=== PATIENT | female | born 1980 | race Caucasian/White ===

== ENCOUNTER 2024-01-28 11:39 | Emergency (ER) | payer BC, SELFPAY ==
[2024-01-28 11:51] VITALS: BP 121/90; PULSE 84; RESP 18; TEMP 36.8; O2SAT 100
--- NOTE | 2024-01-28 12:39 | ED.URI ---
HPI - URI/Sore Throat General Chief Complaint: Upper Respiratory Infection Stated Complaint: Cough/Sore Throat Time Seen by Provider: 01/28/24 12:35 Source: patient, RN notes reviewed and old records reviewed Mode of arrival: ambulatory Limitations: no limitations History of Present Illness HPI Narrative: 43 year old female who presents to [facility] care with complaints of sore throat since yesterday with fever up to 100F noted last night. Patient reports that she has had dry cough for about a month without resolution.Patient reports that she has taken some Tylenol for her symptoms. Patient reports no dyspnea with respirations nonlabored and SAO2 100% on room air, no tachypnea noted. MD elicited complaint: cough and sore throat Onset (ago): day(s) (sore throat since yesterday and cough for one month) Severity: mild Able to tolerate fluids by mouth: Yes Treatments prior to arrival: acetaminophen Related Data Home Medications Medication Instructions Recorded Confirmed escitalopram oxalate 20 mg tablet 20 mg PO DAILY 01/28/24 01/28/24 Allergies Allergy/AdvReac Type Severity Reaction Status Date / Time No Known Allergies Allergy Unknown Unverified 09/20/14 13:27 Review of Systems Review of Systems: CONSTITUTIONAL:Reports malaise, chills, sweats, or fever. EYES: Denies visual changes, redness, or discharge. ENT: Reports rhinorrhea, congestion,no sinus pain, no otalgia and positive for sore throat. CARDIOVASCULAR: Denies chest pain, palpitations, or edema. RESPIRATORY: Reports cough.? Denies dyspnea. GASTROINTESTINAL: Denies abdominal pain, nausea, vomiting, diarrhea SKIN: Denies rash or itching. MUSCULOSKELETAL: Denies myalgia. NEUROLOGIC: Denies headache. All systems reviewed & are unremarkable except as noted in HPI and below PMFSH Past Medical History Medical History Miscarriage Surgical History Surgical History History of dilatation and curettage Family History Family History Father Family history of arthritis Family history of lymphoma Social History Social History Smoking status: Never smoker Second hand tobacco smoke exposure: No Alcohol intake: never Comments At time of signature, agree with nursing past medical, surgical, social and family history. There is no relevant family history pertinent to the presenting complaint Exam Narrative: GENERAL: Well-appearing, well-nourished, and in no acute distress. HEAD: Normocephalic EYES: PERRLA, conjunctivae clear ENT: Nares clear, turbinates edematous and erythematous, clear discharge. Mucous membranes moist. TM pearly vaughan with dull light reflex bilaterally; no tragal tenderness. Oropharynx erythematous without lesions. Tonsils not enlarged and without exudate, no drooling, no hoarseness, no trismus, uvula midline.post nasal drainage NECK: Supple. No lymphadenopathy CHEST: Clear to auscultation, breath sounds equal. No wheezing, rhonchi, rales, or stridor. No respiratory distress, speaks in full sentences. dry cough,SAO2 100% on room air HEART: Regular rate and rhythm. No murmur heard. SKIN: Warm, dry, no rash. NEURO: Alert and oriented x3. PSYCH: Normal mood and affect Course Course Emergency Course: Patient is aware of diagnosis, understands and agrees to treatment plan.? Anticipatory guidance given.? Patient agrees to follow-up as directed and is aware of reasons to seek care at the emergency department. Portions of this record may have been created with voice recognition software Level of Care: Express Care Visit Vital Signs Vital signs: Vital Signs Temperature 36.8 C 01/28/24 11:51 Pulse Rate 84 01/28/24 11:51 Respiratory Rate 18 01/28/24 11:51 Blood Pressure 121/90 01/28/24 11:51 Pulse Oximetry 100 01/28/24 11:51 Oxygen Delivery Room Air 01/28/24 11:51 Temperature 36.8 C 01/28/24 11:51 Pulse Rate 84 01/28/24 11:51 Respiratory Rate 18 01/28/24 11:51 Blood Pressure 121/90 01/28/24 11:51 Pulse Oximetry 100 01/28/24 11:51 Oxygen Delivery Room Air 01/28/24 11:51 Reviewed MDM - URI/Sore Throat MDM Narrative Medical decision making narrative: Differential diagnosis considered: Ferrer virus, strep pharyngitis, allergic rhinitis, upper respiratory tract infection, sinusitis, rhinosinusitis, nasopharyngitis. viral pharyngitis, otitis media, otitis externa, pneumonia, bronchitis, viral cough syndrome, viral syndrome, and influenza.? Exam findings show no acute concerns or changes; patient is non-toxic appearing and is in no distress.? Patient is appropriate for outpatient treatment and follow-up. Differential Diagnosis Differential diagnosis: Likely upper respiratory infection, viral infection, pharyngitis and other (STREP THROAT, AND ACUTE COUGH) Medical Records Attestation: I reviewed the patient's medical records. Lab Data Attestation: I reviewed the patient's lab results. Lab results narrative: STREP SCREEN NEGATIVE,CULTURE SENT Labs: Lab Results 01/28/24 Range/Units 14:08 POC Grp A Strep Screen Negative (Negative) Critical Care Time Critical Care Time Critical Care Time: No Discharge Plan Discharge Clinical Impression: Upper respiratory infection, Cough Patient Disposition: Home, Self-Care Condition: Stable Instructions: Antibiotic Form, Upper Respiratory Infection (ED), Acute Cough (ED) Additional Instructions: Increase fluids especially juices and water [id number] cough and cold medicine of your choice for your symptoms Zyrtec Claritin or Melissa daily include Coricidin brand decongestant Steroids as directed--take with food heat to the face 20-30 minutes 4-6 times a day for pain Salt water gargles, throat lozenges or throat sprays as desired Your strep test today was negative. A throat culture will be sent to the laboratory for further testing. IF the test is positive, you will receive a phone call within 48 hours and an appropriate antibiotic will be initiated at that time. If your symptoms persist, change or worsen significantly before you can contact your personal physician then please, without delay, go to the emergency department for further evaluation. Follow-up with PCP in 7-10 days or sooner if needed Follow up with PCP soon in regards to your blood pressure which is elevated above threshold for referral. Blood pressure above 120/80 may indicate pre-hypertension. 121/90 Prescriptions: New prednisone 20 mg tablet 20 mg PO BID Qty: 10 0RF No Action escitalopram oxalate 20 mg tablet 20 mg PO DAILY Follow-up/Referrals: UNKNOWN,DOCTOR [Primary Care Provider] - Stand Alone Forms: Work/School Release IP Time of Disposition: 12:43 Quality [place] Coma Scale Eyes: Open Verbal: Oriented and Alert Motor: Follows Commands [place] Coma Total Score: 15
[2024-01-28 14:10] LABS: EDSTREPNEGPOS1 Negative (Negative)
== END 2024-01-28 12:47 | disposition home or self-care (01) ==
PROVIDERS: Emergency Provider Registered Nurse
DX: J06.9 Acute upper respiratory infection, unspecified (principal); R05.1 Acute cough
CPT/HCPCS: 87081; 87880; 99213; G0463

== ENCOUNTER 2024-11-25 08:03 | Emergency (ER) | payer BC, SELFPAY ==
[2024-11-25 08:09] VITALS: BP 149/70; PULSE 109; RESP 16; TEMP 36.6; O2SAT 100
--- NOTE | 2024-11-25 08:09 | ED.URI ---
HPI - URI/Sore Throat General Chief Complaint: Upper Respiratory Infection Stated Complaint: cough Time Seen by Provider: 11/25/24 08:10 Source: patient, RN notes reviewed and old records reviewed Mode of arrival: ambulatory Limitations: no limitations History of Present Illness HPI Narrative: 44-year-old female presents to the [facility] with complaints of cough, sore throat, body aches, fatigue. Unknown fever. No measurements. States that started Thursday day. Has taken DayQuil and NyQuil with minimal relief. Denies chest pain, shortness of breath. Onset (ago): day(s) (2) Consistency: constant Treatments prior to arrival: cold medicine Related Data Home Medications ?Medication ?Instructions ?Recorded ?Confirmed ?Last Taken ?Type No Home Medications 11/25/24 Unknown History Allergies Allergy/AdvReac Type Severity Reaction Status Date / Time No Known Allergies Allergy Unknown Unverified 11/25/24 08:15 Review of Systems Review of Systems: All systems reviewed & are unremarkable except as noted in HPI and below Constitutional: Constitutional: Reports as per HPI and Reports body ache(s) ENT: Reports as per HPI and Reports sore throat Cardiovascular: Cardiovascular: Reports no additional cardiovascular complaints, Denies chest pain and Denies dyspnea Respiratory: Respiratory: Reports as per HPI, Denies chest congestion, Reports cough and Denies dyspnea Musculoskeletal: Musculoskeletal: Reports no additional musculoskeletal complaints Integumentary/Breasts: Skin/Breast: Reports system reviewed and no additional complaints, except as docu PMFSH Past Medical History Medical History Miscarriage Surgical History Surgical History History of dilatation and curettage Family History Family History Father Family history of arthritis Family history of lymphoma Social History Social History Smoking status: Never smoker Second hand tobacco smoke exposure: No Alcohol intake: never Comments At the time of my signature, I reviewed and agree with the nursing past medical, surgical, social, and family history. There is no relevant family history pertinent to the patient complaint. Exam Const: General: cooperative, healthy appearing, comfortable, no acute distress, well developed, alert and well nourished Nutritional Appearance: well nourished and obese Orientation/consciousness: patient oriented x3 Limitations: no limitations HENMT: Head: normal to inspection Ears: hearing grossly normal bilaterally, external ears normal, TM's normal bilaterally, EAC's normal, mastoids normal and no periauricular adenopathy Mouth: Yes Normal oral and palatal mucosa present, Yes lip normal, Yes tongue normal and Yes moist mucous membranes Throat: posterior oropharynx normal, uvula midline, postnasal drainage and no uvular edema Eyes: General: appearance normal, both eyes and all related structures Alignment and Position: alignment normal Neck: Neck: normal visual inspection, full ROM, no lymphadenopathy and no meningeal signs Chest: Chest palpation & inspection: normal inspection of the chest Resp: Effort & Inspection: normal respiratory effort and able to speak in complete sentences Auscultation: clear to auscultation bilaterally, no crackles, no rales, no rhonchi and no wheezes Cardio: Rate: regular rate Skin: General skin exam: normal color and no rashes or lesions noted Neuro: General: patient oriented x3, gait normal, moves all extremities and no meningeal signs Cognition (Neuro): normal cognition Speech: normal speech Gait exam (Neuro): Normal gait present Extrem: General: normal to inspection, full ROM, capillary refill normal and normal gait Psych: Appearance: grossly normal and well kempt Mental Status: mental status grossly normal Speech and movement: Normal speech and movement present and Clear speech present Affect: normal affect Attitude: cooperative Course Course Level of Care: Express Care Visit Vital Signs Vital signs: Vital Signs Temperature 98 F 11/25/24 08:09 Pulse Rate 109 H 11/25/24 08:09 Respiratory Rate 16 11/25/24 08:09 Blood Pressure 149/70 H 11/25/24 08:09 Pulse Oximetry 100 11/25/24 08:09 Oxygen Delivery Room Air 11/25/24 08:09 Temperature 98 F 11/25/24 08:09 Pulse Rate 109 H 11/25/24 08:09 Respiratory Rate 16 11/25/24 08:09 Blood Pressure 149/70 H 11/25/24 08:09 Pulse Oximetry 100 11/25/24 08:09 Oxygen Delivery Room Air 11/25/24 08:09 Reviewed MDM - URI/Sore Throat MDM Narrative Medical decision making narrative: Patient sitting in exam room. Patient is nontoxic, vitals are stable except blood pressure mildly elevated, recommended following up with primary care provider. Patient 2 day history of URI symptoms, body aches, sore throat, congestion. Patient is COVID positive. Flu and strep negative. Due to positive COVID and exam with no acute findings, not sending for strep. Patient appropriate for outpatient treatment with close follow-up of COVID-19 Discharge instructions reviewed with patient, as well as provided in writing per nursing staff. The instructions also include specific and strict return/GO TO THE ER as well as f/u information. All questions have been answered, and the patient deny any further questions with discharge and discharge plan. Some parts of this dictation were generated by voice recognition software and may contain typographical and/or grammatical inaccuracies. Differential Diagnosis Differential diagnosis: Likely upper respiratory infection, otitis media, sinusitis, viral infection, bronchitis, influenza and pharyngitis Lab Data Labs: Lab Results 11/25/24 Range/Units 08:24 POC Influenza A Ag Negative (Negative) POC Influenza B Ag Negative (Negative) POC SARS CoV-2 Ag Positive (Negative) POC Grp A Strep Screen Negative (Negative) Reviewed Critical Care Time Critical Care Time Critical Care Time: No Discharge Plan Discharge Clinical Impression: COVID-19 Patient Disposition: Home Condition: Stable Instructions: COVID-19 (Coronavirus Disease 2019) (ED), COVID-19: Slow the Coronavirus Spread (ED) Additional Instructions: Today your blood pressure is 149/70. It is recommended you follow-up with your primary care provider within 2 weeks to have this rechecked. Your rapid strep swab was negative today at [facility]. A throat culture will be sent to the laboratory for further testing. If the test is positive, you will receive a phone call within 48 hours and an appropriate antibiotic will be initiated at that time. Your rapid COVID test was positive. You should stay home, wear a mask when around other people for the next 10 days. Your rapid flu test was negative Your symptoms are likely due to a viral illness, which is not treated with antibiotics. Typically viral infections last 7-10 days, can linger for couple of weeks. It is very important to treat your symptoms. Drink plenty of water, Gatorade, Pedialyte, ice pops or Jell-O. -Alternate Tylenol and Motrin per package directions for fever or pain. You can alternate every 4 hours -Antihistamine medication such as Zyrtec/Claritin/Melissa during the day can help improve symptoms. -doing daily nasal irrigations can help relieve pressure your sinuses. Things like a Neti pot -Use Flonase twice a day for 5 days then daily to help reduce the inflammation and dry up your sinuses. -You can also use Mucinex. Be sure to drink plenty of water with this medication at least 8 ounces with every dose and it is important to drink 8 to 10 glasses of water per day. Water is a natural decongestant -Eat and drink things that are easy to swallow, like tea or soup, or popsicles. -Oral rinses such as: Salt water gargles and/or may use topical anesthetic (eg. Chloraseptic spray) or lozenges to relieve dryness or throat pain). -Frequent hand washing or hand staying machine operator is one of the best ways to prevent spread of infection. -Using a vaporizer or humidifier at night will also help thin secretions and help with coughing up phlegm. -Follow up with primary care provider in 7-10 days if condition is not improving - For new or worsening symptoms go directly to the nearest ER Patient Language: Romansh Prescriptions: No Action No Home Medications Follow-up/Referrals: Adeola,LORRIE Lu [Primary Care Provider, Unknown] - 2 Weeks Referral Note: [facility] follow-up, blood pressure check 149/70 Stand Alone Forms: Work/School Release IP Time of Disposition: 08:27
--- OUTSIDE RECORDS SUMMARY | 2024-11-25 08:13 | XMS_ITS | Clinical Summary ---
Author Organization [facility] Medical Office Building [address] Address [address] [place] [address] Care Team Providers Care Manager [employer] Name Role Phone Kathryn Kline NP Primary Care Provider + [phone] Allergies No known active allergies Medications cholecalciferol, vitD3,/vit K2 (vitamin D3-vitamin K2) 125-90 mcg capsule Take 1 tablet by mouth daily Active multivitamin capsule Take 1 capsule by mouth daily Active ibuprofen (ADVIL,MOTRIN) 600 mg tabletIndication s:Pain,Postopera tive Acute Pain Take 1 tablet (600 mg total) by mouth every 6 (six) hours as needed for pain 3 Active tirzepatide, weight loss, (Zepbound) 2.5 mg/0.5 mL pen injectorIndicati ons:Class 3 severe obesity due to excess calories without serious comorbidity with body mass index (BMI) of 40.0 to 44.9 in adult Inject 0.5 mL (2.5 mg total) under the skin every 7 days 2 mL 4 Active Additional Information Patient not taking.Reported on 06/28/2024 escitalopram (LEXAPRO) 20 mg tabletIndication s:Generalized anxiety disorder,Mild episode of recurrent major depressive disorder Take 1 tablet (20 mg total) by mouth daily 90 tablet 3 4 Active amoxicillin-clav ulanate (AUGMENTIN) 875-125 mg per tablet Take 1 tablet by mouth every 12 (twelve) hours 14 tablet 5 Active Active Problems Problem Noted Date Diagnosed Date Episode of recurrent major depressive disorder 1 04/27/2021 Assessment & Plan (02/10/2024 9:08 AM TOUR BUS DRIVER/GUIDE): -chronic, stable -continue on escitalopram 20 mg daily. Refill sent -Advised patient to not take other people's prescriptions Patient reiterated no suicidal thoughts at this time; take medication as directed; contact 911 and go to the ER if becomes suicidal; discussed side effects of medication with patient; encouraged healthy diet and exericise; encouraged patient to see a counselor Assessment & Plan (09/23/2022 2:50 PM CDT): Patient reiterated no suicidal thoughts at this time; take medication as directed; contact 911 and go to the ER if becomes suicidal; discussed side effects of medication with patient; encouraged healthy diet and exericise; encouraged patient to see a counselor -chronic, improving, but not at goal- patient has been out of the medication for a few weeks, but was doing well prior to this -continue on escitalopram 20 mg daily. Refill sent -follow up in 3 months Assessment & Plan (05/26/2022 3:07 PM TOUR BUS DRIVER/GUIDE): Patient reiterated no suicidal thoughts at this time; take medication as directed; contact 911 and go to the ER if becomes suicidal; discussed side effects of medication with patient; encouraged healthy diet and exericise; encouraged patient to see a counselor HPI: Condition is improving, but not at goal A&P: Discussed/ordered labs, encouraged healthy, low carbohydrate lifestyle and at least 150min/week of exercise, increase to escitalopram 20 mg daily Assessment & Plan (02/25/2022 3:16 PM TOUR BUS DRIVER/GUIDE): Patient reiterated no suicidal thoughts at this time; take medication as directed; contact 911 and go to the ER if becomes suicidal; discussed side effects of medication with patient; encouraged healthy diet and exericise; encouraged patient to see a counselor HPI: Condition is not at/near goal A&P: Discussed/ordered labs, encouraged healthy, low carbohydrate lifestyle and at least 150min/week of exercise. Start on escitalopram 10 mg daily. Follow-up in 6 week. Class 3 severe obesity due t o excess calories without serious comorbidity with body mass index (BMI) of 40.0 to 44.9 in adult 07/17/2021 Assessment & Plan (06/28/2024 1:16 PM CDT): Chronic, stable, not at goal BMI less than 30. Wt Readings from Last 3 Encounters: 06/28/24 117 kg (258 lb) 02/10/24 114.3 kg (252 lb) 11/28/22 116.6 kg (257 lb) Body mass index is 42.93 kg/m . BMI plan includes: Nutrition and exercise changes as tolerated, as weight loss will improve joint pain. Formerly Rx Zepbound however pt is not taking it. Assessment & Plan (02/10/2024 9:09 AM TOUR BUS DRIVER/GUIDE): -chronic, not at/near goal goal BMI <30 Healthy, high-protein, lower carbohydrate, lower fat lifestyle and exercise for 150min/week recommended Recommend tracking everything you put in your mouth on an francisco like Tyromer -start on zepbound 2.5 mg weekly x 4 wks, then increase to 5 mg Demo pen used to show pt how to use the medication. Discussed the importance of site rotation, stay 2 fingerbreadths away from belly button. Discussed the importance of cutting meals in half starting after first dose. Discussed that this will slow gastric emptying which will make pt feel full longer and fill up faster. Discussed the one bite or one gulp too much scenario that can increase nausea/vomiting. Listen to your body. Reiterated that pt does not have family or personal history of medullary thyroid cancer or pancreatitis. -Referral sent to principal military analyst Hand Measurements: A fist or cupped hand = 1 cup 1 cup = 1 -2 servings of fruit juice 1 oz. of cold cereal 2 oz. of cooked cereal, rice or pasta 8 oz. of milk or yogurt A thumb = 1 oz. of cheese Consuming low-fat cheese helps you meet the required servings from the milk, yogurt and cheese group. 1 oz. of low-fat cheese counts as 8 oz. of milk or yogurt. Handful = 1-2 oz. of snack food Thumb tip = 1 teaspoon Keep high-fat foods, such as peanut butter and mayonnaise, at a minimum. One teaspoon is equal to the end of your thumb, from the knuckle up. Three teaspoons equals 1 tablespoon. Palm = 3 oz. of meat Choose lean poultry, fish, shellfish and beef. One palm size portion equals 3 oz. for an adult and 1 -2 oz. for a child under 5. 1 tennis ball or a fist= 1/2 cup of fruit and vegetables Healthy diets include a variety of colorful fruits and vegetables every day. The secret to serving size is in your hand. Snacking can add up. Because hand sizes vary, compare your fist size to an actual measuring cup. Assessment & Plan (09/23/2022 7:03 AM CDT): HPI: Condition is not at/near goal goal BMI <30 A&P: Healthy, high-protein, lower carbohydrate, lower fat lifestyle and exercise for 150min/week recommended Recommend tracking everything you put in your mouth on an francisco like Tyromer Hand Measurements: A fist or cupped hand = 1 cup 1 cup = 1 -2 servings of fruit juice 1 oz. of cold cereal 2 oz. of cooked cereal, rice or pasta 8 oz. of milk or yogurt A thumb = 1 oz. of cheese Consuming low-fat cheese helps you meet the required servings from the milk, yogurt and cheese group. 1 oz. of low-fat cheese counts as 8 oz. of milk or yogurt. Handful = 1-2 oz. of snack food Thumb tip = 1 teaspoon Keep high-fat foods, such as peanut butter and mayonnaise, at a minimum. One teaspoon is equal to the end of your thumb, from the knuckle up. Three teaspoons equals 1 tablespoon. Palm = 3 oz. of meat Choose lean poultry, fish, shellfish and beef. One palm size portion equals 3 oz. for an adult and 1 -2 oz. for a child under 5. 1 tennis ball or a fist= 1/2 cup of fruit and vegetables Healthy diets include a variety of colorful fruits and vegetables every day. The secret to serving size is in your hand. Snacking can add up. Because hand sizes vary, compare your fist size to an actual measuring cup. Assessment & Plan (05/26/2022 7:39 AM TOUR BUS DRIVER/GUIDE): HPI: Condition is not at/near goal goal BMI <30 A&P: Healthy, high-protein, lower carbohydrate, lower fat lifestyle and exercise for 150min/week recommended Recommend tracking everything you put in your mouth on an francisco like [employer] Hand Measurements: A fist or cupped hand = 1 cup 1 cup = 1 -2 servings of fruit juice 1 oz. of cold cereal 2 oz. of cooked cereal, rice or pasta 8 oz. of milk or yogurt A thumb = 1 oz. of cheese Consuming low-fat cheese helps you meet the required servings from the milk, yogurt and cheese group. 1 oz. of low-fat cheese counts as 8 oz. of milk or yogurt. Handful = 1-2 oz. of snack food Thumb tip = 1 teaspoon Keep high-fat foods, such as peanut butter and mayonnaise, at a minimum. One teaspoon is equal to the end of your thumb, from the knuckle up. Three teaspoons equals 1 tablespoon. Palm = 3 oz. of meat Choose lean poultry, fish, shellfish and beef. One palm size portion equals 3 oz. for an adult and 1 -2 oz. for a child under 5. 1 tennis ball or a fist= 1/2 cup of fruit and vegetables Healthy diets include a variety of colorful fruits and vegetables every day. The secret to serving size is in your hand. Snacking can add up. Because hand sizes vary, compare your fist size to an actual measuring cup. Assessment & Plan (02/25/2022 3:25 PM TOUR BUS DRIVER/GUIDE): HPI: Condition is not at/near goal goal BMI <30 A&P: Healthy, high-protein, lower carbohydrate, lower fat lifestyle and exercise for 150min/week recommended Recommend tracking everything you put in your mouth on an francisco like [employer] Hand Measurements: A fist or cupped hand = 1 cup 1 cup = 1 -2 servings of fruit juice 1 oz. of cold cereal 2 oz. of cooked cereal, rice or pasta 8 oz. of milk or yogurt A thumb = 1 oz. of cheese Consuming low-fat cheese helps you meet the required servings from the milk, yogurt and cheese group. 1 oz. of low-fat cheese counts as 8 oz. of milk or yogurt. Handful = 1-2 oz. of snack food Thumb tip = 1 teaspoon Keep high-fat foods, such as peanut butter and mayonnaise, at a minimum. One teaspoon is equal to the end of your thumb, from the knuckle up. Three teaspoons equals 1 tablespoon. Palm = 3 oz. of meat Choose lean poultry, fish, shellfish and beef. One palm size portion equals 3 oz. for an adult and 1 -2 oz. for a child under 5. 1 tennis ball or a fist= 1/2 cup of fruit and vegetables Healthy diets include a variety of colorful fruits and vegetables every day. The secret to serving size is in your hand. Snacking can add up. Because hand sizes vary, compare your fist size to an actual measuring cup. Assessment & Plan (11/27/2021 11:53 AM CDT): Refer to Dr. Velez gastric surgeon Stop all soda intake HPI: Condition is not at/near goal goal BMI <30 A&P: Healthy, high-protein, lower carbohydrate, lower fat lifestyle and exercise for 150min/week recommended Recommend tracking everything you put in your mouth on an francisco like Tyromer Lower carb substitutions: Aldi carries a zero net carb bread If you are looking for whole potatoes, like to use in soup or new potato shape/flavor, radishes are a great replacement If you are looking for mashed potatoes, riced cauliflower in the frozen bag section are a great replacement For pasta, try using zucchini noodles, lay them out on a cookie sheet and pat dry with a tea towel to try to remove as much moisture as possible. Heat your pasta sauce on the stove and put the noodles in for 30-45 seconds. If you leave them in much longer they will become mushy Dilliner and/or coconut flour instead of regular flour For pizza dough, try fathead pizza dough recipe online. To get a crispy crust, bake on one side for 8-12 min, then flip over and bake on the other side for 8-12 min, then put toppings on and bake until the cheese on top of pizza melts chaffles recipe online For ice cream, try the brand Enlightened To replace coffee creamer and make it low carb, use heavy creamer with sugar free Torani sweetener For chips, try Whisps or pork rinds For yogurt, try Two Good scottish yogurt Use Pinterest for recipe ideas. Type in low carb... Hand Measurements: A fist or cupped hand = 1 cup 1 cup = 1 -2 servings of fruit juice 1 oz. of cold cereal 2 oz. of cooked cereal, rice or pasta 8 oz. of milk or yogurt A thumb = 1 oz. of cheese Consuming low-fat cheese helps you meet the required servings from the milk, yogurt and cheese group. 1 oz. of low-fat cheese counts as 8 oz. of milk or yogurt. Handful = 1-2 oz. of snack food Thumb tip = 1 teaspoon Keep high-fat foods, such as peanut butter and mayonnaise, at a minimum. One teaspoon is equal to the end of your thumb, from the knuckle up. Three teaspoons equals 1 tablespoon. Palm = 3 oz. of meat Choose lean poultry, fish, shellfish and beef. One palm size portion equals 3 oz. for an adult and 1 -2 oz. for a child under 5. 1 tennis ball or a fist= 1/2 cup of fruit and vegetables Healthy diets include a variety of colorful fruits and vegetables every day. The secret to serving size is in your hand. Snacking can add up. Remember, 1 handful equals 1 oz. of nuts and small candies. For chips and pretzels, 2 handfuls equals 1 oz. Because hand sizes vary, compare your fist size to an actual measuring cup. Assessment & Plan (07/17/2021 9:45 AM CDT): HPI: Condition is not at/near goal goal BMI <30 A&P: Healthy, high-protein, lower carbohydrate, lower fat lifestyle and exercise for 150min/week recommended Must drink 80-120 ounces of water daily, use coke zero as a reward for drinking your water Substitutions: Recommend tracking everything you put in your mouth on an francisco like Tyromer or [employer] carries a zero net carb bread If you are looking for whole potatoes, like to use in soup or new potato shape/flavor, radishes are a great replacement If you are looking for mashed potatoes, riced cauliflower in the frozen bag section are a great replacement For pasta, try using zucchini noodles, lay them out on a cookie sheet and pat dry with a tea towel to try to remove as much moisture as possible. Heat your pasta sauce on the stove and put the noodles in for 30-45 seconds. If you leave them in much longer they will become mushy Dilliner and/or coconut flour instead of regular flour For pizza dough, try fathead pizza dough recipe online. To get a crispy crust, bake on one side for 8-12 min, then flip over and bake on the other side for 8-12 min, then put toppings on and bake until the cheese on top of pizza melts chaffles recipe online For ice cream, try the brand Enlightened To replace coffee creamer and make it low carb, use heavy creamer with sugar free Torani sweetener For chips, try Whisps or pork rinds For yogurt, try Two Good scottish yogurt Use Monique for recipe ideas. Type in low carb... Tonsil stone 07/17/2021 Assessment & Plan (07/17/2021 9:47 AM CDT): Referral to ENT placed. Plantar fasciitis 07/17/2021 Assessment & Plan (07/17/2021 9:47 AM CDT): Images from the original note were not included. Referral to podiatry placed. Plantar Fasciitis PLATING INSPECTOR: Plantar fasciitis is swelling of the plantar fascia. The plantar fascia is a band of fibers that connect your heel bone to the front of your foot. It helps support the arch of your foot and absorbs shock. Plantar fasciitis is caused by small tears in the plantar fascia. Over time, the tears cause swelling and irritation. Signs and symptoms: Pain near your heel, especially first thing in the morning Pain with prolonged standing, sitting, or walking Redness, swelling, or warmth over the injured part of your foot Treatment may include any of the following: Medicines may be given to decrease swelling and pain. Steroids may be injected into your heel to decrease swelling and pain. Shoe inserts, splints, or tape help support your foot and decrease stress on your plantar fascia. A night splint may help stretch your plantar fascia while you sleep. Stretches and exercises can help decrease pain and swelling. They can also help strengthen the muscles that support your heel and foot. Surgery is rarely needed to separate the plantar fascia from your heel. Self-care: Wear your splint or shoe inserts as directed. You may need to wear a splint at night to keep your foot stretched while you sleep. This will help prevent sharp pain first thing in the morning. Shoe inserts will help decrease stress on your plantar fascia when you walk or exercise. Rest as directed. Rest as much as possible to decrease swelling and prevent more damage. Ask your healthcare provider when you can return to your normal activities. Apply ice on your plantar fascia. Ice helps prevent tissue damage and decreases swelling and pain. Fill a water bottle with water and freeze it. Wrap a towel around the bottle or cover it with a pillow case. Roll the water bottle under your foot for 10 minutes in the morning and after work. Massage your plantar fascia as directed. This may help decrease swelling and pain. Roll a golf ball under your foot for 10 minutes. Repeat 3 times each day. Go to physical therapy as directed. A physical therapist teaches you exercises to help improve movement and strength, and to decrease pain. Prevent plantar fasciitis: Maintain a healthy weight. This will help decrease stress on your feet. Ask your healthcare provider how much you should weigh. Ask him to help you create a weight loss plan if you are overweight. Do low-impact exercises. Low-impact exercises decrease stress on your plantar fascia. Examples include swimming or bicycling. Start new activities slowly. Increase the intensity and time gradually. Wear shoes that fit well and support your arch. Replace your shoes before the padding or shock absorption wears out. Do not walk or food stand manager bare feet or sandals for long periods of time. Stretch before you exercise. Ask your healthcare provider how to stretch your plantar fascia and calf muscles. Follow up with your healthcare provider or power wheelchair mechanic as directed Plantar Fasciitis Exercises WHAT YOU NEED TO KNOW: Plantar fasciitis exercises help stretch your plantar fascia, calf muscles, and Achilles tendon. They also help strengthen the muscles that support your heel and foot. Exercises and stretching can help prevent plantar fasciitis from getting worse or coming back. DISCHARGE INSTRUCTIONS: Contact your healthcare provider if: Your pain and swelling increase. You develop new knee, hip, or back pain. You have questions or concerns about your condition or care. Towel Stretch The towel stretch is effective at reducing morning pain if done before getting out of bed. 1. Sit with involved leg straight out in front of you. Place a towel around your foot and gently pull toward you, feeling a stretch in your calf muscle. 2. Hold 45 seconds, 2-3 times. Repeat 4-6 times per day. Ice Massage Arch Roll 1. With involved foot resting on a frozen can or water bottle, golf ball, or tennis ball, roll your foot back and forth over the object. 2. Repeat for 5-10 minutes, 2-3 times per day. Slant board stretch: Stand on a slanted board with your toes higher than your heel. Press your heel into the board. Keep your knee slightly bent. Hold this position for 1 minute. Repeat 5 times. Heel stretch: Stand up straight with your hands on a wall. Place your injured leg slightly behind your other leg. Keep your heels flat on the floor, lean forward, and bend both knees. Hold for 30 seconds. Calf stretch: Stand up straight with your hands on a wall. Step forward so that your uninjured foot is in front of your injured foot. Keep your front leg bent and your back leg straight. Gently lean forward until you feel your calf stretch. Hold for 30 seconds and then relax. Seated plantar fascia stretch: Sit on a firm surface, such as the floor or a mat. Extend your legs out in front of you. Raise your injured foot a few inches off the ground. Keep your leg straight. Grab the toes of your injured foot and pull them toward you. With your other hand, feel your plantar fascia. You should feel it press outward. Hold for 30 seconds. If you cannot reach your toes, loop a towel or tie around your foot. Gently pull on the towel or tie and flex your toes toward you. Heel raises: Stand on the injured leg. Raise your other leg off the ground. Hold onto a railing or wall for balance. Slowly rise up on the toes of your injured leg. Hold for 5 seconds. Slowly lower your heel to the ground. Toe curls: Place a towel on the floor. Put your foot flat on the towel. Grab the towel with your toes by curling them around the towel. Lift the towel up with your toes. Toe taps: Sit down and place your foot flat on the floor. Keep your heel on the floor. Point all your toes up toward the ceiling. While the 4 smaller toes are pointed up, bend your big toe down and tap it on the ground. Do 10 to 50 taps. Point all 5 toes up toward the ceiling again. This time keep your big toe pointed up and tap the 4 smaller toes on the ground. Do 10 to 50 taps each time. Follow up with your healthcare provider as directed Numbness and tingling in both hands 07/17/2021 Assessment & Plan (07/17/2021 9:56 AM CDT): Positive phalen sign in left hand, Negative tinels sign bilateral Purchase a cock-up wrist splint to wear once you get home from work. Do the gatorade challenge-drink a 16-20 ounces of gatorade G2 daily and drink lots of water, don't get dehydrated. Try to rest your hands/wrists on your days off work. Let me know if this is not improving in about 2 mo. At that point, if not improving, we will need to refer you to neurology for an EMG/NCS. Vitamin D deficiency 07/17/2021 Assessment & Plan (02/10/2024 9:10 AM TOUR BUS DRIVER/GUIDE): -chronic, unknown, no data to review at this time to make an evaluation -Discussed/ordered labs -continue on daily vitamin-D supplement Assessment & Plan (02/25/2022 3:19 PM TOUR BUS DRIVER/GUIDE): HPI: Condition is stable. Patient takes a vitamin d supplement, but is unsure of the dosage. A&P: Discussed/ordered labs, encouraged healthy, low carbohydrate lifestyle and at least 150min/week of exercise. Find out what dosage vitamin d3 you are taking. Continue on vitamin d3 supplementation. Please try to get 15 min of unsunscreened time daily with as much skin showing as possible. Anything more than 15 min, please use sunscreen. Generalized anxiety disorder 08/13/2013 Assessment & Plan (02/10/2024 9:08 AM TOUR BUS DRIVER/GUIDE): -chronic, stable -continue on escitalopram 20 mg daily. Refill sent -Advised patient to not take other people's prescriptions Patient reiterated no suicidal thoughts at this time; take medication as directed; contact 911 and go to the ER if becomes suicidal; discussed side effects of medication with patient; encouraged healthy diet and exericise; encouraged patient to see a counselor Assessment & Plan (09/23/2022 2:50 PM CDT): Patient reiterated no suicidal thoughts at this time; take medication as directed; contact 911 and go to the ER if becomes suicidal; discussed side effects of medication with patient; encouraged healthy diet and exericise; encouraged patient to see a counselor -chronic, improving, but not at goal- patient has been out of the medication for a few weeks, but was doing well prior to this -continue on escitalopram 20 mg daily. Refill sent -follow up in 3 months Assessment & Plan (05/26/2022 3:07 PM TOUR BUS DRIVER/GUIDE): Patient reiterated no suicidal thoughts at this time; take medication as directed; contact 911 and go to the ER if becomes suicidal; discussed side effects of medication with patient; encouraged healthy diet and exericise; encouraged patient to see a counselor HPI: Condition is improving, but not at goal A&P: Discussed/ordered labs, encouraged healthy, low carbohydrate lifestyle and at least 150min/week of exercise, increase to escitalopram 20 mg daily Assessment & Plan (02/25/2022 3:15 PM TOUR BUS DRIVER/GUIDE): Patient reiterated no suicidal thoughts at this time; take medication as directed; contact 911 and go to the ER if becomes suicidal; discussed side effects of medication with patient; encouraged healthy diet and exericise; encouraged patient to see a counselor HPI: Condition is not at/near goal A&P: Discussed/ordered labs, encouraged healthy, low carbohydrate lifestyle and at least 150min/week of exercise. Start on escitalopram 10 mg daily. Follow-up in 6 week. Resolved Problems Problem Noted Date Diagnosed Date Resolved Date Acute non-recurrent maxillary sinusitis 07/17/2022 02/10/2024 Assessment & Plan (07/17/2022 5:51 PM CDT): 1. Claritin D 2. Augmentin 3. Nasal saline rinses as needed for congestion. 4. Follow-up in 5-7 days - if symptoms worsen or persist Menorrhagia with regular cycle 04/23/2022 10/29/2022 Overview (04/23/2022): Added automatically from request for surgery [id number] Encounters Date Type Department Care Team Description 10/09/2024 10:16 PM CDT - 10/09/2024 10:39 PM CDT Emergency [facility] Emergency Department [address] [place] [address] Cat bite of left foot, initial encounter (Primary Dx) Discharge Disposition: Discharge to home or self care from Last 3 Months Immunizations Immunization Administration Dates Next Due Hep A, Adult 10/24/2013 Influenza, Trivalent, Preser vative Free, Intramuscular 02/10/2024 Influenza, Unspecified 07/15/2022(Deferr ed: Patient Refused),05/26/2022(Deferred: Patient Refused),10/28/2021(Deferred: Patient Refused),07/17/2021(Deferred: Patient Refused),11/28/2020(Deferred: Patient Refused),11/29/2019(Deferred: Patient Refused) Tdap 07/17/2021,03/16/2009 Surgical History Surgery Date Site/Laterality Comments SECTION 2006 section SECTION 2009 Section DILATION AND CURETTAGE OF UTERUS 2005 Spontaneous requiring D&C LAPAROSCOPIC HYSTERECTOMY 03/30/2022 - 03/29/2023 TLH-BS - menorrhagia SALPINGECTOMY 03/30/2022 - 03/29/2023 Bilateral with hysterectomy Medical History Medical History Date Comments Motion sickness Acid reflux Anxiety Family History Medical History Relation Name Comments Other Brother 2 Alive and well; Depression Father Depression; Ali ve and Well Other Father MALT Lymphoma; Lung cancer Maternal Grandfather Cancer, lung; Cancer Maternal Grandmother Cancer -; Breast cancer Mother Cervical cancer Mother Depression Mother Depression; Ali ve and Well Hypertension Mother Hypertension; A live and Well Skin cancer Sister 1 Other Sister 2 Alive and well; Relation Name Status Comments Brother 1 Alive Brother 2 Father Alive Maternal Grandfather Alive Maternal Grandmother Alive Mother Alive Sister 1 Alive Sister 2 Social History Tobacco Use Types Packs/Day Years Used Date Smoking Tobacco: Never Smokeless Tobacco: Never Tobacco Cessation:Counseling Given: Not Answered Alcohol Use Standard Drinks/Week Comments No 0 (1 standard drink = 0.6 oz pur e alcohol) AUDIT-C Answer Date Recorded Q1: How often do you have a drink containing alc ohol? Monthly or less 02/10/2024 Q2: How many drinks containi ng alcohol do you have on a typical day when you are drinking? 1 or 2 02/10/2024 Q3: How often do you have si x or more drinks on one occasion? Never 02/10/2024 PHQ-2 Answer Date Recorded PHQ-2 Total Score (If total score is 3 or more points, staff should administer the PHQ-9) 0 02/10/2024 Personal Safety Answer Date Recorded Have you ever been in or are you currently in a harmful physical or emotional relationship or is someone making you feel afraid or unsafe? Denies 10/09/2024 Comments No Sex and Gender Information Value Date Recorded Sex Assigned at Not on file Legal Sex Female 4:58 PM TOUR BUS DRIVER/GUIDE Gender Identity Female 11/27/2021 10:54 AM CDT Sexual Orientation Straight 11/27/2021 10 :54 AM CDT Occupation Industry Job Start Date Job End Date Not on file Not on file Not on file Not on file Obstetrics History Para Term AB IAB SAB Ectopic Multiple Livin g Live Births 3 2 2 1 1 2 2 Date Outcome GA Total Labor Labor/2nd/3rd Weight Sex Type Anes PTL Isela A1 A5 Name Clin 2005 SAB D&C 2005 Term 3.6 kg (7 lb 15 oz) M CS-LT ranv Living 2008 Term 3.317 kg (7 lb 5 oz) M CS-LT ranv Living Last Filed Vital Signs Vital Sign Reading Time Taken Comments Blood Pressure 140/87 10/09/2024 9:56 PM CDT Pulse 88 10/09/2024 10:39 PM CDT Temperature 36.7 C (98 F) 10/09/2024 9:56 PM CDT Respiratory Rate 15 10/09/2024 10:39 PM CDT Oxygen Saturation 100% 10/09/2024 10:39 PM CDT Inhaled Oxygen Concentration - - Weight 113.4 kg (250 lb) 10/09/2024 9:56 PM CDT Height 165.1 cm (5' 5) 06/28/2024 1:12 PM CDT Body Mass Index 41.6 06/28/2024 1:12 PM CDT Plan of Treatment Health Maintenance Due Date Last Done Comments HPV Vaccines (1 - 3-dose SCDM series) 2008 Breast Cancer Screening-Mammogram 04/02/2023 04/02/2022 Covid-19 Vaccine ( season) 2023 06/16/2020, 05/19/2020 Influenza Vaccine (#1) 2024 02/10/2024 Depression Screening 02/09/2025 02/10/2024, 09/23/2022, 07/15/2022, Additional history exists Regular Well Visit/Exam 18-64 02/09/2025 02/10/2024, 03/26/2022 DTaP/Tdap/Td Vaccine (3 - Td or Tdap) 07/18/2031 07/17/2021, 03/16/2009 Cervical Cancer Screening Discontinued 03/26/2022 Hepatitis B Screening Completed 02/10/2024 Hepatitis C Screening Completed 02/10/2024 Pneumococcal vaccine <65 Aged Out No longer eligible based on patient's age to complete this topic Varicella Vaccines Discontinued Procedures Procedure Name Priority Date/Time Associated Diagnosis Comments HEPATITIS C ANTIBODY Routine 02/10/2024 9:00 AM TOUR BUS DRIVER/GUIDE Encounter for hepatitis C screening test for low risk patient Need for hepatitis B screening test SCREENING MAMMOGRAM BILATERAL W MIRYAM Schedule Routine, Read Routine (OP Routine) 04/02/2022 3:43 PM TOUR BUS DRIVER/GUIDE Encounter for screening mammogram for breast cancer PAP AND HIGH RISK HPV, REFLEX TO GENOTYPING Routine 03/26/2022 9:12 AM TOUR BUS DRIVER/GUIDE Screening for malignant neoplasm of cervix from Last 3 Months or Most Recently Relevant to Health Maintenance Results * Hepatitis C antibody Blood (02/10/2024 9:00 AM TOUR BUS DRIVER/GUIDE) Hep C Ab Nonreactive Nonreactive Comment: Interpretive Data Nonreactive: Antibodies to HCV not detected. Does NOT exclude the possibility of recent exposure to HCV. Equivocal: Equivocal for HCV antibodies. Supplemental molecular testing will be automatically performed to determine infection status in accordance with current CDC screening recommendations. Reactive: Positive for HCV antibodies. This may represent current or past HCV infection. Supplemental molecular testing will be automatically performed to determine current infection status in accordance with current CDC screening recommendations. Interpretive data was last revised on 2019. Testing performed by: [facility], [address] [place] [address], [place]., [address] Blood 02/10/2024 9:00 AM TOUR BUS DRIVER/GUIDE 02/10/2024 11:10 AM TOUR BUS DRIVER/GUIDE us Kathryn Kline NP LAB MICROBIOLOGY - GENERAL O RDERABLES Final Result Performing Organization Address City/State/[facility] Co de Phone Number [facility] ([place]) [facility] Department [place] [address] * Screening Mammogram Bilateral W Miryam (04/02/2022 3:43 PM TOUR BUS DRIVER/GUIDE) Anatomical Region Laterality Modality Breast Bilateral Mammography Narrative 04/03/2022 4:09 PM TOUR BUS DRIVER/GUIDE BILATERAL DIGITAL MAMMOGRAPHY with tomography. The present examination is patient's baseline study. Mammography Findings CAD (computer-aided detection) software was utilized. The breasts are heterogeneously dense. This may lower the sensitivity of mammography. No masses, significant calcifications or other abnormalities are seen. Impression There is no mammographic evidence of malignancy. Screening mammogram in 1 year is recommended. BI-RADS Category 1: Negative PATIENT LETTER SENT us Rosalie Lambert MD IMG MAMMO PROCEDURES Final Result * Pap and High Risk HPV, reflex to Genotyping (03/26/2022 9:12 AM TOUR BUS DRIVER/GUIDE) Thin prep (Pap test) 03/26/2022 9:12 AM TOUR BUS DRIVER/GUIDE 03/26/2022 9:12 AM TOUR BUS DRIVER/GUIDE Narrative PATHOLOGY CH - 04/01/2022 12:48 PM TOUR BUS DRIVER/GUIDE [facility] Department of Pathology [address] [place] [id number] Final Report with Addendum Note to Patients: This report may contain a detailed description of human tissue sent by a health care provider to the laboratory for pathologic evaluation. The content of this report is essential for diagnosis and may provide important critical findings. This information may be unfamiliar to patients to review without a medical professional present. It is advised that the patient review this report in the presence of a health care provider who can answer questions and explain the details. Patient Name: SHELLY CAMPUZANO Address: [address], [place] [address] Gender: F : 1980 (Age: 41) Service: Location: Hospital #: [id number] Patient Type: SPECIMEN Taken: 03/26/2022 Received: 03/26/2022 Accessioned:: 03/27/2022 Reported: 04/01/2022 Physician(s): MD Rosalie Thacker MD Diagnosis: Source of Specimen: SCREENING THIN PREP IMAGED PAP w/ HPV Specimen Adequacy: - Satisfactory for evaluation; endocervical/transformation zone component present General Category: - Negative for intraepithelial lesion or malignancy YESSICA Johns(ASCP) Report Electronically Reviewed and Signed Out By FELIPE JohnsASCP) 04/01/2022 12:48:21Addenda: HPV Test Interpretation NEGATIVE for types 16, 18, 31, 33, 35, 39, 45, 51, 52, 56, 58, 59, 66 and 68. Test performed utilizing Gen-Probe Aptima assay. YESSICA Johns(ASCP)Report Electronically Reviewed and Signed Out By YESSICA Johns(ASCP) 03/28/2022 13:30:33 Specimen(s) Received: A: SCREENING THIN PREP IMAGED PAP w/ HPV Clinical History: Last Menstrual Period: 02/27/22 The Pap test is a screening test used to aid in the detection of cervical cancer and its precursors. It should not be the sole means by which malignant and premalignant lesions are diagnosed. Both false negative and false positive results may occur. It also has poor sensitivity for the detection of endometrial lesions and should not be used to evaluate suspected endometrial abnormalities. For these reasons it is most important to obtain Pap tests at regular intervals. The performance characteristics of some immunohistochemical stains, fluorescence in-situ hybridization tests and immunophenotyping by flow cytometry cited in this report (if any) were determined by the Surgical Pathology Department at [facility] as part of an ongoing quality control technician program and in compliance with federally mandated regulations drawn from the Clinical Laboratory Improvement Act of 1988 (CLIA '88). Some of these tests rely on the use of analyte specific reagents and are subject to specific labeling requirements by the [place] Food and Drug Administration. Such diagnostic tests may only be performed in a facility that is certified by the Department of Health and Human Services as a high complexity laboratory under CLIA '88. The FDA has determined that such clearance or approval is not necessary. This test is used for clinical purposes. It should not be regarded as investigational or for research. Nevertheless, federal rules concerning the medical use of analyte specific reagents require that the following disclaimer be attached to the report: This test was developed and its performance characteristics determined by the Surgical Pathology Department [facility]. It has not been cleared or approved by the U. S. Food and Drug Administration. Rosalie Lambert MD LAB CYTOLOGY ORDERABL ES Final Result PATHOLOGY [id number] [place] [address] from Last 3 Months or Most Recently Relevant to Health Maintenance Insurance [facility] [employer] [place] [employer] [place] [employer] For more information, please contact: [phone] * Full Code (Latest Code Status on File) Date Activated Date Inactivated Comments 10/13/2022 11:37 AM 10/13/2022 10:09 PM Care Teams Manager University Relationship Specialty Start Date End Date Kathryn Kline NP [address] [place] [address] [place] [address] PCP - General Family Medicine 02/25/22
[2024-11-25 08:29] LABS: EDCOVIDSCREEN Positive (Negative); EDINFLUASCREEN Negative (Negative); EDINFLUBSCREEN Negative (Negative); EDSTREPNEGPOS1 Negative (Negative)
== END 2024-11-25 08:32 | disposition home or self-care (01) ==
PROVIDERS: Emergency Provider Nurse Practitioner; PCP Physician Assistant
DX: U07.1 COVID-19 (principal)
CPT/HCPCS: 87426; 87804; 87880; 99213; G0463